=== PATIENT | male | born 1975 | race American Indian/Alaskan Native ===

== ENCOUNTER 2017-09-06 21:40 | Emergency (ER) | payer OTHER ==
[2017-09-06 22:36] VITALS: BP 140/91
[2017-09-07] MEDS ORDERED: XYLOCAINE 1% 20 mL INFILTRATI ONE (03:08)
--- NOTE | 2017-09-07 03:47 | XRay Report ---
FINAL REPORT EXAM: XR HAND 2V LT HISTORY: laceration TECHNIQUE: AP and lateral views of the left hand were submitted. FINDINGS: There is soft tissue deforming overlying the dorsal aspect of the carpal bones. There no evidence of fracture or radiopaque foreign body. IMPRESSION: Soft tissue laceration/deformity overlying the dorsal aspect of the wrist. No evidence of fracture or radiopaque foreign body.
--- NOTE | 2017-09-07 04:21 | Emergency Department Report ---
- General Chief Complaint: Wound/Laceration Stated Complaint: LAC TO LT WRIST Time Seen by Provider: 09/07/17 03:07 Source: patient Mode of arrival: Ambulatory Limitations: No Limitations - History of Present Illness Initial Comments: There is a 42-year-old -[place] male who presents for left dorsal hand laceration states medical pipe fell function of impacting back of his left hand causing laceration bleeding controlled via direct pressure, there is no numbness no tingling no weakness rom intact no bleeding at this time. Onset/Timin -: hour(s) Extremity Location: Left: Hand (dorsal hand wrist ) 1 - 2 cm laceration left hand no nerve tendon or muscle involvment Place: home Patient Tetanus UTD: Yes (last 1 yr ago ) Context: accidental Associated Symptoms: pain - Related Data Previous Rx's Medication Instructions Recorded Last Taken Type Cephalexin [Keflex] 500 mg PO TID #30 capsule 09/07/17 Unknown Rx traMADol [Ultram] 50 mg PO Q6HR PRN #15 tablet 09/07/17 Unknown Rx Allergies Allergy/AdvReac Type Severity Reaction Status Date / Time No Known Allergies Allergy Unverified 09/06/17 22:36 ED Review of Systems ROS: Stated complaint: LAC TO LT WRIST Other details as noted in HPI Constitutional: denies: chills, fever Eyes: denies: eye pain, eye discharge, vision change ENT: denies: ear pain, throat pain Respiratory: denies: cough, shortness of breath, wheezing Cardiovascular: denies: chest pain, palpitations Endocrine: no symptoms reported Gastrointestinal: denies: abdominal pain, nausea, diarrhea Genitourinary: denies: urgency, dysuria Musculoskeletal: denies: back pain, joint swelling, arthralgia Skin: other (laceration left dorsal hand wrist ). denies: rash, lesions Neurological: denies: headache, weakness, paresthesias Psychiatric: denies: anxiety, depression Hematological/Lymphatic: denies: easy bleeding, easy bruising ED Past Medical Hx - Past Medical History Previous Medical History?: No - Surgical History Past Surgical History?: No - Social History Smoking Status: Never Smoker Substance Use Type: Alcohol - Medications Home Medications: Home Medications Medication Instructions Recorded Confirmed Last Taken Type Cephalexin [Keflex] 500 mg PO TID #30 capsule 09/07/17 Unknown Rx traMADol [Ultram] 50 mg PO Q6HR PRN #15 tablet 09/07/17 Unknown Rx ED Physical Exam - General Limitations: No Limitations General appearance: alert, in no apparent distress - Head Head exam: Present: atraumatic, normocephalic - Eye Eye exam: Present: normal appearance - ENT ENT exam: Present: mucous membranes moist - Neck Neck exam: Present: normal inspection - Respiratory Respiratory exam: Present: normal lung sounds bilaterally. Absent: respiratory distress - Cardiovascular Cardiovascular Exam: Present: regular rate, normal rhythm. Absent: systolic murmur, diastolic murmur, rubs, gallop - GI/Abdominal GI/Abdominal exam: Present: soft, normal bowel sounds - Rectal Rectal exam: Present: deferred - Extremities Exam Extremities exam: Present: full ROM, tenderness, normal capillary refill. Absent: pedal edema, joint swelling, calf tenderness - Expanded Upper Extremity Exam Left Hand Wrist exam: Present: full ROM, tenderness, laceration. Absent: swelling, abrasion, ecchymosis, deformity, crepidus, dislocation, erythema, amputation, nail avulsion, subungual hematoma Hand L/R Back: 1 - laceration see procedure note Neuro motor exam: Present: wrist extension intact, thumb opposition intact, thumb IP flexion intact, thumb adduction intact, fingers 2-5 abduction intact Neurosensory exam: Present: 2-point discrimination, radial nerve intact, median nerve intact Vascular: Present: normal capillary refill, radial pulse, brachial pulse, ulnar pulse. Absent: vascular compromise, Pallo, pulse deficit radial art, pulse deficit ulnar art, pulse deficit brachial art - Back Exam Back exam: Present: normal inspection - Neurological Exam Neurological exam: Present: alert, oriented X3, CN II-XII intact, normal gait, reflexes normal. Absent: motor sensory deficit - Psychiatric Psychiatric exam: Present: normal affect, normal mood - Skin Skin exam: Present: warm, dry, intact, normal color. Absent: rash ED Course Vital Signs 09/06/17 22:34 Temperature 98.1 F Pulse Rate 57 L Respiratory 18 Rate Blood Pressure 140/91 O2 Sat by Pulse 100 Oximetry - Laceration /Wound Repair Left Dorsal Hand Wound Location: upper extremity Wound Length (cm): 2 Wound's Depth, Shape: superficial Wound Explored: clean Irrigated w/ Saline (ccs): 80 Betadine Prep?: Yes Anesthesia: 1% Lidocaine Volume Anesthetic (ccs): 3 Wound Debrided: minimal Wound Repaired With: sutures Suture Size/Type: 4:0, nylon Number of Sutures: 7 Layer Closure?: No Sterile Dressing Applied?: Yes Progress: wound repair with 4.0 nylon, all bleeding controlled pt tolerated procedure with minimal distress pt given wound care instructions ED Medical Decision Making - Radiology Data Radiology results: report reviewed, image reviewed no fracture no soft tissue abnormality - Medical Decision Making left dorsal hand laceration 2 cm no nerve tendon or muscle involvment, pt for laceration repair of same, tolerated with minimal distress, all bleeding cotrolled sterile dressing applied, rad pulses +2, production support developer <3 sec rom intact no numbness tingling or paresthesia Critical care attestation.: If time is entered above; I have spent that time in minutes in the direct care of this critically ill patient, excluding procedure time. ED Disposition Clinical Impression: Laceration of left hand Qualifiers: Encounter type: initial encounter Foreign body presence: without foreign body Qualified Code(s): S61.412A - Laceration without foreign body of left hand, initial encounter Disposition: DC- TO HOME OR SELFCARE Is pt being admited?: No Does the pt Need Aspirin: No Condition: Good Instructions: Laceration (ED), Suture Care (ED) Prescriptions: Cephalexin [Keflex] 500 mg PO TID #30 capsule traMADol [Ultram] 50 mg PO Q6HR PRN #15 tablet PRN Reason: Pain Referrals: PRIMARY CARE,MD [Primary Care Provider] - 3-5 Days Forms: Work/School Release Form(ED) Time of Disposition: 04:29
== END 2017-09-07 04:35 | disposition home or self-care (01) ==
LOC: ED 21:40
DX: S61.412A Laceration without foreign body of left hand, initial encounter (principal); W45.8XXA Other foreign body or object entering through skin, initial encounter; Y93.89 Activity, other specified; Y92.89 Other specified places as the place of occurrence of the external cause; Y99.8 Other external cause status